=== PATIENT | female | born 1965 | race Two or more races ===

== ENCOUNTER 2024-11-10 12:05 | Emergency (ER) | payer OTHER ==
[~2024-11-10] VITALS: Ht 152.4 cm; Wt 74.4 kg
[2024-11-10] MEDS ORDERED: ROSUVASTATIN CA20 MG PO (12:25)
[2024-11-10] MEDS ORDERED: COZAAR25 MG PO (12:25)
[2024-11-10] MEDS ORDERED: EFFEXOR XR37.5 MG PO (12:26)
[2024-11-10] MEDS ORDERED: LYRICA50 MG PO (12:26)
[2024-11-10] MEDS ORDERED: DEXAMETHASONE SODIUM PHOSPHATE 4 MG/ML VIAL IM STA (14:53)
[2024-11-10] MEDS ORDERED: ORPHENADRINE CITRATE 30 MG/ML AMPUL IM STA (14:53)
[2024-11-10] MEDS ORDERED: KETOROLAC TROMETHAMINE 30 MG VIAL IM STA (14:56)
[2024-11-10] MEDS ORDERED: DEXAMETHASONE SODIUM PHOSPHATE 4 MG/ML VIAL IV STA (14:56)
[2024-11-10] MEDS ORDERED: ORPHENADRINE CITRATE 30 MG/ML AMPUL IV STA (14:56)
[2024-11-10] MEDS ORDERED: FAMOTIDINE/PF 20 MG/2 ML VIAL IV STA (14:57)
[2024-11-10] MEDS ORDERED: KETOROLAC TROMETHAMINE 30 MG VIAL ONE (15:13)
[2024-11-10] MEDS ORDERED: DEXAMETHASONE SODIUM PHOSPHATE 4 MG/ML VIAL ONE (15:13)
[2024-11-10] MEDS ORDERED: ORPHENADRINE CITRATE 30 MG/ML AMPUL ONE (15:13)
[2024-11-10] MEDS ORDERED: FAMOTIDINE/PF 20 MG/2 ML VIAL ONE (15:14)
== END 2024-11-10 17:27 | disposition home or self-care (01) ==
LOC: ER 12:08
DX: M62.838 Other muscle spasm (principal); Z91.013 Allergy to seafood; Z88.2 Allergy status to sulfonamides; I10 Essential (primary) hypertension; G62.9 Polyneuropathy, unspecified